=== PATIENT | female | born 1985 | race Hispanic/Latino ===

== ENCOUNTER 2023-05-20 18:39 | Emergency (ER) | payer MEDICAID ==
[~2023-05-20] VITALS: Ht 154.9 cm; Wt 71.7 kg
[2023-05-20 21:10] LABS: RAPID GROUP A STREP negative (NEGATIVE)
[2023-05-20 21:11] LABS: INFLUENZA TYPE A Negative For Type A (NEGATIVE); INFLUENZA TYPE B Negative For Type B (NEGATIVE)
[2023-05-20] MEDS: ACETAMINOPHEN 500 MG TABLET PO ONE (21:47)
[2023-05-20 22:12] LABS: SARS-CoV-2, RNA, NAAT NEGATIVE SARS CoV-2 (NEGATIVE)
[2023-05-20 22:25] VITALS: BP 138/68; PULSE 85; RESP 20; O2SAT 98
[2023-05-20] MEDS ORDERED: AMOX1TAB16 PO (22:59)
== END 2023-05-20 23:03 | disposition home or self-care (01) ==
LOC: EDH 18:39
DX: J02.9 Acute pharyngitis, unspecified (principal); I10 Essential (primary) hypertension; Z90.49 Acquired absence of other specified parts of digestive tract; Z20.822 Contact with and (suspected) exposure to COVID-19
CPT/HCPCS: 87635; 87804; 87880